=== PATIENT | male | born 1990 | race Asian ===

== ENCOUNTER 2020-04-08 15:20 | Emergency (ER) | payer OTHER ==
[2020-04-08 15:38] VITALS: BP 123/89
[2020-04-08] MEDS ORDERED: CHERRY SYRUP 10 ML UDC PO ONE (16:51)
[2020-04-08] MEDS ORDERED: DEXAMETHASONE 10 MG/ML VIAL PO STA (16:51)
--- NOTE | 2020-04-08 16:54 | ED Physician Documentation ---
PD HPI HEENT - Stated complaint Stated Complaint: FACIAL PAIN - Chief complaint Chief Complaint: General - History obtained from History obtained from: Patient - History of Present Illness Timing - onset: Yesterday Timing - duration: Days (1) Timing - details: Gradual onset, Still present Location: Left ear, Sinuses Improves: Medication Associated symptoms: Congestion, Rhinorrhea, Facial swelling, Cough. No: Fever Similar symptoms before: Diagnosis (sinusitis) Recently seen: Not recently seen - Additional information Additional information: Previously well 29-year-old male has developed nasal congestion facial pain and swelling as well as pain in his left ear. He has bit the had the pain in his left ear for about a month he developed a sinus pain and congestion yesterday and now he is blowing yellow and green phlegm from his nose. He denies any fever he does have a headache and facial pain. Review of Systems Constitutional: denies: Fever, Chills Eyes: denies: Decreased vision Ears: reports: Ear pain Nose: reports: Rhinorrhea / runny nose, Congestion, Sinus pressure / pain Throat: denies: Sore throat Cardiac: denies: Chest pain / pressure, Palpitations Respiratory: reports: Cough. denies: Dyspnea GI: denies: Vomiting PD PAST MEDICAL HISTORY - Past Medical History Past Medical History: No - Past Surgical History Past Surgical History: No - Present Medications Home Medications: Ambulatory Orders Medication Instructions Recorded Confirmed Cefdinir 300 mg PO BID #20 capsule 04/08/20 - Social History Does the pt smoke?: No Smoking Status: Never smoker PD ED PE NORMAL - Vitals Vital signs reviewed: Yes (tachy and hypertensive) - General General: Alert and oriented X 3, No acute distress, Well developed/nourished - HEENT HEENT: Atraumatic, PERRL, EOMI, Other (The left TM is inflamed with distortion of the landmarks. The right is inflamed. The pharynx is inflamed with 2+ cryptic exudative tonsils. ) - Neck Neck: Supple, no meningeal sign, No bony TTP - Cardiac Cardiac: RRR, No murmur - Respiratory Respiratory: No respiratory distress, Clear bilaterally - Abdomen Abdomen: Soft, Non tender - Back Back: No CVA TTP, No spinal TTP - Derm Derm: Normal color, Warm and dry, No rash - Extremities Extremities: No deformity, No edema - Neuro Neuro: Alert and oriented X 3, telephone collector 2-12 intact, No motor deficit, No sensory deficit, Normal speech Eye Opening: Spontaneous Motor: Obeys Commands Verbal: Oriented GCS Score: 15 - Psych Psych: Normal mood, Normal affect Results - Vitals Vitals: Vital Signs - 24 hr 04/08/20 15:36 Temperature 37.2 C Heart Rate 112 H Respiratory 18 Rate Blood Pressure 123/89 H O2 Saturation 96 Oxygen O2 Source Room air PD MEDICAL DECISION MAKING - ED course Complexity details: considered differential, d/w patient ED course: 29-year-old male with acute sinusitis and otitis is administered dexamethasone 10 mg orally and we will place him on a course of cefdinir Departure - Departure Disposition: Home, Self Care Clinical Impression: Acute sinusitis Qualifiers: Sinusitis location: maxillary Recurrence: non-recurrent Qualified Code(s): J01.00 - Acute maxillary sinusitis, unspecified Otitis media Qualifiers: Otitis media type: suppurative Chronicity: acute Laterality: bilateral Recurrence: non-recurrent Spontaneous tympanic membrane rupture: without spontaneous rupture Qualified Code(s): H66.003 - Acute suppurative otitis media without spontaneous rupture of ear drum, bilateral Condition: Stable Instructions: ED Sinusitis Abx Tx, ED Otitis Media Acute Adult Follow-Up: SUMMER MONTENEGRO MD [Primary Care Provider] - Prescriptions: Cefdinir 300 mg PO BID #20 capsule
== END 2020-04-08 17:12 | disposition home or self-care (01) ==
LOC: ED 15:20
DX: J01.00 Acute maxillary sinusitis, unspecified (principal); H66.003 Acute suppurative otitis media without spontaneous rupture of ear drum, bilateral
CPT/HCPCS: 99282; 99284; A9270

== ENCOUNTER 2022-10-31 14:42 | Outpatient (CLI) | payer OTHER ==
[2022-10-31 15:58] VITALS: BP 136/82
--- NOTE | 2022-10-31 15:58 | SLEEP CARE CONSULTATION ---
Information from patient questionnaire entered by April Johnson. I have reviewed and concur with the information entered by April Johnson. This document represents the service I personally performed and the decisions made by me, Iesha Metzger ARNP. History of Present Illness Service Date and Time: 10/31/2022 1442 Reason for Visit: New patient Chief Complaint: reports: Unrefreshed sleep, Snoring, Observed pauses in breathing, Fatigue, Frequent awakenings at night Date of Onset: 6-7YRS Usual bedtime: 9PM-10PM Time it takes to fall asleep: 20MIN-60MIN Snores at night: Yes Observed to quit breathing while asleep: Yes Sleeps alone due to snoring: No Number of times waking at night: 1-2 Reasons for waking at night: reports: Gasping for air (happened 2 times overall with a bad dream), Other (UNKNOWN). denies: Choking, Snoring Toss, Turn, or Twitch while sleeping: Yes Recalls having dreams: Yes Usually gets out of bed at: 5-6AM Feels refreshed in the morning: No Morning headache: Yes (2-3 days in a row twice a month; hx of migraines; MEDS [facility] DRINKS) Sleepy or fatigued during the day: Yes Ever fallen asleep while driving: No Takes day naps: No Dreams during day naps: Yes Prior sleep studies: No Additional HPI information: I had the pleasure of seeing BETH RODRIGUEZ today regarding the possibility of him having a sleep disorder. His current complaints are fatigue, frequent night awakenings, observed pauses in breathing, snoring and unrefreshed sleep. He states that his is telling him that she thinks he is not breathing and snoring loudly. He states it takes 20 minutes to 1 hour to fall asleep. He will take melatonin to help him fall asleep which he states helps him fall asleep quicker. If he does not take the melatonin he will not fall asleep for an hour or more. He does have brother who has a PAP machine. - Parasomnia Symptoms Ever been unable to move upon waking from sleep: Yes (rare, with a bad dream once when young; last one 4 yrs ago) Walks in sleep: No Talks in sleep: Yes Ever acted out dreams in sleep: Yes (small hand movements, typing) Ever felt weak in the knees when startled or emotional: No Bothered by creepy, crawly, restless sensations in legs: Yes (nighttime, sometimes (not every day)) Problems with memory or concentration: Yes (both) Subjective Initial [place] Sleepiness Scale score: 19 (10/31/22) Past Medical History Past Medical History: reports: Anxiety, Depression, Other (migraines) Social History 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 Patient is and lives in [place]. Have you smoked in the past 12 months: No Years of smokin Quit date: 2018 Alcohol use: No Caffeine use: Yes Caffeine amount and frequency: 1-2 CANS 4-5 DAYS A WEEK Family History Family history of sleep disordered breathing: Yes Family Hx Sleep Apnea: Sibling: Snoring, Sleep apnea - Treated Allergies and Home Medications Known drug allergies: No Drug allergies reviewed: Yes Home medication list reviewed: Yes Allergy and home medication list: Allergies No Known Drug Allergies Allergy (Verified 10/30/22 15:41) Medications: Wellbutrin Sumatriptan prn headaches Excedrin, prn Melatonin, prn sleep Review of Systems Weight gain over past 5 years: 10 Cardiovascular: denies: high blood pressure Gastrointestinal: denies: heartburn Neurological: reports: headaches Psychiatric: reports: anxiety, depression Ear/Nose/Throat: reports: wisdom teeth removed. denies: injury to nose, tonsillectomy Endocrine: reports: sluggishness Musculoskeletal: reports: neck pain, back pain Immunologic: denies: allergies to food or environment Physical Exam Vital signs obtained and entered by: APRIL Morales MA Blood Pressure: 136/82 (LEFT ARM) Cuff size: regular Heart Rate: 80 O2 Saturation: 96 Height: 5 ft 9 in Weight: 202 lb 6.4 oz Body Mass Index: 29.9 BMI Classification: Overweight Neck circumference: 16.25 Mouth and throat: narrow oropharynx Soft palate: normal Hard palate: normal Uvula: normal Uvula visualization: 100% Mallampati Class I Tongue: enlarged in size with teeth dobson on lateral edges Tonsils: 2+ Neck: normal w/o lymphadenopathy or thyromegaly Heart: regular rate and rhythm Lungs: clear bilaterally Impression and Plan 1. Suspected Obstructive Sleep Apnea-Hypopnea Syndrome, as suggested by a history of loud and irregular snoring, observed cessation of breath while asleep, morning headache, frequent awakening during the night, unrefreshed sleep, cognitive impairment, and excessive daytime sleepiness. Narrow oropharynx and obesity are common predisposing factors for obstructive sleep apnea-hypopnea syndrome. I recommend proceeding to polysomnography to confirm the diagnosis and to assess severity. If the patient has significant sleep disordered breathing, a manual CPAP titration study will also be performed to find the optimal treatment pressure. I informed the patient of what the sleep studies involve and after some discussion, obtained agreement to proceed. The pathophysiology of obs tructive sleep apnea-hypopnea syndrome was discussed with the patient and health risks of cardiovascular and cerebrovascular disease if not treated. Risks of drowsy driving discussed in detail and patient advised to avoid long distance driving and to hook puller at the first sign of drowsiness. Patient agreed to plan. * Schedule polysomnography * Avoid long distance driving or driving when feeling sleepy. * Avoid alcohol, sedative and muscle relaxant around bedtime. * Attempt to lose weight. * Review instructions provided by trained office staff on how to prepare for the sleep study. * Return for follow-up after sleep study completed. Counseling Topics: Weight loss health impact Visit Type: In Office Time Spent with Patient (minutes): 30 Provider Statement: I spent 100% of the Face to Face Visit with the patient with greater than 50% spent counseling the patient and coordination of care.
== END 2022-10-31 14:43 | disposition home or self-care (01) ==
LOC: SC 14:42
PROVIDERS: ATTEND Nurse Practitioner Family
DX: R06.83 Snoring (principal); G47.8 Other sleep disorders; R06.81 Apnea, not elsewhere classified; R51.9 Headache, unspecified; G47.10 Hypersomnia, unspecified; R53.83 Other fatigue; F32.A Depression, unspecified; Z87.891 Personal history of nicotine dependence; E66.3 Overweight; Z68.29 Body mass index [BMI] 29.0-29.9, adult
CPT/HCPCS: 99203; 99212

== ENCOUNTER 2022-11-25 20:28 | Outpatient (CLI) | payer OTHER | END 2022-11-25 20:29 | disposition home or self-care (01) | LOC: SC 20:28 | PROVIDERS: ATTEND Nurse Practitioner Family | DX: G47.33 Obstructive sleep apnea (adult) (pediatric) (principal) | CPT/HCPCS: 95810 ==

== ENCOUNTER 2022-12-24 14:47 | Outpatient (CLI) | payer OTHER ==
[2022-12-24 15:07] VITALS: BP 123/83
--- NOTE | 2022-12-24 15:07 | SLEEP CARE CONSULTATION ---
Information from patient questionnaire entered by April Johnson. I have reviewed and concur with the information entered by April Johnson. This document represents the service I personally performed and the decisions made by me, Iesha Metzger ARNP. History of Present Illness Service Date and Time: 12/24/2022 1447 Initial [place] Sleepiness Scale score: 19 (10/31/22) Current [place] Sleepiness Scale score: 16 Additional HPI information: BETH RODRIGUEZ returns for follow up and results of the recently performed polysomnography. I explained the pathophysiology behind obstructive sleep apnea. We then spent quite a bit of time discussing different treatment options. For mild obstructive sleep apnea, surgery and oral appliance are alternatives to nasal CPAP therapy but in moderate or severe cases, nasal CPAP is the most effective and reliable treatment. Because apnea is primarily in supine position, then positional management therapy could be effective. Methods discussed such as positioning with pillows, using a T-shirt with tennis balls in the back or commercial products that have a pillow format on back to prevent supine sleep. I reviewed the impact of weight changes on sleep apnea and strongly recommended losing weight. After some discussion, the patient opted to go with the nasal CPAP therapy. Nasal autoCPAP set at 4-15 cmH20 will be ordered with rationale explained. A manual titration study will be ordered if unable to find optimal pressure with office adjustments. I explained how CPAP machine works and what to expect when using the machine. Using CPAP every night in order to get used to it was emphasized. Patient advised to put CPAP mask on before getting into bed so as not to fall asleep without CPAP. To assist acclimation to CPAP use, it could also be used for a short time during day while reading or watching TV. The patient was instructed to call the CPAP supplier to discuss any mechanical problem that may occur. If the mask given is uncomfortable or is difficult to keep on through the night even with adjustment, contact the CPAP supplier as many will replace with another mask style if notified before 30 days. If snoring or perceives is not getting enough air or too much air from the machine, notify this office. Patient does not drink alcohol. Patient was cautioned about risks of drowsy driving until sleepiness symptoms resolve. Patient denies drowsy driving. Sleep Study - Results Type of Sleep Study: Polysomnography (COMPLETED 11/25/2022) Prior sleep studies: No Polysomnography/Home Sleep Study results: IMPRESSION: The quality of the study is good. The patient had normal sleep efficiency. The sleep architecture was relatively normal considering the first-night effect. Respiratory monitoring showed mild obstructive sleep apnea-hypopnea (AHI = 7.3) associated with oxyhemoglobin desaturation and mild hypoxia (nasir oxygen saturation of 81%). The respiratory events occurred almost exclusively during supine sleep (supine AHI = 10.7; non-supine = 1.62). Snore was light to moderate in intensity. There was no significant periodic leg movement of sleep. Cardiac rhythm was normal sinus rhythm without significant arrhythmia. No abnormal behavior (parasomnia) observed during the night Allergies and Home Medications Known drug allergies: No Drug allergies reviewed: Yes Home medication list reviewed: Yes (Bupropion XL 150 mg; Benazepril 10 mg) Allergy and home medication list: Allergies No Known Drug Allergies Allergy (Verified 12/23/22 08:54) Review of Systems Review of systems same as previous: No (Hypertension; possible Pre-diabetic) Physical Exam Vital signs obtained and entered by: IOANA Arriaza Blood Pressure: 123/83 (left arm) Cuff size: long Heart Rate: 97 O2 Saturation: 98 Height: 5 ft 9 in Weight: 204 lb (with boots/clothes on) Body Mass Index: 30.1 BMI Classification: Obese Impression and Plan 1. Obstructive Sleep Apnea-Hypopnea Syndrome, mild, with lowest oxygen saturation of 81%. Obviously this is the cause of the patients symptoms of unrefreshed sleep, and excessive daytime sleepiness. Positive pressure therapy could benefit anxiety, depression and migraines. As mentioned above, the patient will be started on nasal autoCPAP therapy with pressure set at 4-15 cmH2 O. A manual titration study will be completed if unable to find optimal treatment pressure with office adjustments. Compliance guidelines also reviewed. A copy of compliance guidelines will be given for reference at check out. Because the apnea is more severe supine, I instructed to avoid sleeping supine using pillow positioning until able to start CPAP use. 2. Hypoxemia, mild, with a nasir oxygen saturation of 81% and 2 minutes spent under 90%. His baseline oxygen saturation was normal with an average oxygen saturation of 94%. * Nasal auto CPAP therapy, pressure at 4-15 cm H2O. * Attempt to lose weight. * Avoid alcohol consumption near bedtime. * Avoid supine sleep until using CPAP. * The patient is again cautioned about driving until sleepiness completely resolves. * Return one month after CPAP obtained. I will assess response to therapy and compliance at that time. Counseling Topics: Weight loss health impact Visit Type: In Office Time Spent with Patient (minutes): 20 Provider Statement: I spent 100% of the Face to Face Visit with the patient with greater than 50% spent counseling the patient and coordination of care.
== END 2022-12-24 14:48 | disposition home or self-care (01) ==
LOC: SC 14:47
PROVIDERS: ATTEND Nurse Practitioner Family
DX: G47.33 Obstructive sleep apnea (adult) (pediatric) (principal); E66.9 Obesity, unspecified; Z68.30 Body mass index [BMI] 30.0-30.9, adult
CPT/HCPCS: 99212; 99213

== ENCOUNTER 2023-02-24 13:26 | Outpatient (CLI) | payer OTHER ==
--- NOTE | 2023-02-24 14:09 | SLEEP CARE CONSULTATION ---
Information from patient questionnaire entered by Dane Johnson. I have reviewed and concur with the information entered by Dane Johnson. This document represents the service I personally performed and the decisions made by me, Maryjane Castillo MD, [facility]. History of Present Illness Service Date and Time: 02/24/2023 1326 Reason for follow up: first compliance Equipment type: CPAP (RESMED) Prior sleep studies: No Type of Sleep Study: Polysomnography (COMPLETED 11/25/2022) HPI additional information: Mr. Alvarado was diagnosed to have mild obstructive sleep apnea-hypopnea syndrome and returns today for follow up of CPAP therapy. The patient purchased the device from [employer]. and was fitted with an Antelmo full face mask. He uses the device nightly and all through the night. The compliance report shows that he uses the device 30 nights out of the past 30 nights, averaging 4.9 hours a night. The > 4 hour compliance rate for the past 30 days is 77%. He complains of no particular problem with the device such as soreness on the face, dry nose, epistaxis, nasal congestion or headache. He thinks that the pressure of 4 - 15 cmH2O is occasionally too high during the night. On the CPAP therapy he notices improvement in his sleep quality, and that he wakes up feeling fresher in the morning and no longer has the morning headaches. His notices no snore at all. [place] Sleepiness Scale score is 17. The average residual AHI is 1.8; and average air leak is 1.5 L/minute. The 90th percentile pressure is 12.8 cmH2O. Sleep Study - Results Type of Sleep Study: Polysomnography (COMPLETED 11/25/2022) Prior sleep studies: No CPAP Compliance Data - Data Reviewed with Patient Average duration of nightly device use: 4HRS 48MIN Compliance rate %: 77 (-02/19/23) Current pressure setting (cmH2O): 4-15 Average residual AHI: 1.8 Subjective Initial [place] Sleepiness Scale score: 19 (10/31/22) Current [place] Sleepiness Scale score: 17 (02/24/23) Allergies and Home Medications Drug allergies reviewed: Yes Home medication list reviewed: Yes Allergy and home medication list: Allergies No Known Drug Allergies Allergy (Verified 02/21/23 10:27) Review of Systems Review of systems same as previous: Yes Physical Exam Vital signs obtained and entered by: DANE Morales MA Blood Pressure: 122/78 (LEFT ARM) Cuff size: regular Heart Rate: 78 O2 Saturation: 95 Height: 5 ft 9 in Weight: 200 lb 6.4 oz Body Mass Index: 29.5 BMI Classification: Overweight Impression and Plan IMPRESSION: 1. Obstructive Sleep Apnea-Hypopnea Syndrome, mild, with the patient doing well on nasal CPAP therapy. He has excellent compliance and significant clinical benefits. The current pressure appears effective and comfortable. Overall, he is very satisfied with the treatment and plans to continue with it long-term. Because he complains of feeling smothered when the pressure gets up to 12 cmH2O, I will cap it off at 11 cmH2O. PLAN: 1. AutoCPAP reduced to 5 - 11 cm H2O via the modem. 2. Try a nasal mask. He will return to his durable medical supplier for a mask refit. 3. Return in one year for follow up or earlier if there is any problem with the treatment. Follow up with Sleep Care in: 1 year Visit Type: In Office Time Spent with Patient (minutes): 15 Provider Statement: I spent 100% of the Face to Face Visit with the patient with greater than 50% spent counseling the patient and coordination of care.
[2023-02-24 14:11] VITALS: BP 122/78
== END 2023-02-24 13:27 | disposition home or self-care (01) ==
LOC: SC 13:26
PROVIDERS: ATTEND Internal Medicine Pulmonary Disease
DX: G47.33 Obstructive sleep apnea (adult) (pediatric) (principal); E66.3 Overweight; Z68.29 Body mass index [BMI] 29.0-29.9, adult
CPT/HCPCS: 99212

== ENCOUNTER 2023-10-12 07:49 | Emergency (ER) | payer OTHER ==
--- NOTE | 2023-10-12 07:58 | ED Physician Documentation ---
PD HPI LOWER EXT INJURY - Stated complaint Stated Complaint: LT FT PX - History obtained from History obtained from: Patient - History of Present Illness PD HPI LOW EXT INJURY LOCATION: Left, Foot Type of injury: Other (not aware of particular injury nor new/prolonged activity. Did go for short hike prior but did not feel soreness at the time.). No: Fall, Twist Timing - onset: How many days ago (2-3) Timing - duration: Days Timing - details: Gradual onset, Still present, Constant (has gotten progressively worse. painful for weight bearing on ball of foot; heel walking.) Improved by: Rest Worsened by: Moving, Palpating, Other (weight bearing.) Associated symptoms: No: Weakness, Numbness, Swelling, Discolored Similar symptoms before: Has not had sx before Review of Systems Constitutional: denies: Fever, Chills Skin: denies: Rash, Lesions, Abrasion (s), Laceration (s) Musculoskeletal: denies: Extremity swelling Neurologic: denies: Focal weakness, Numbness PD PAST MEDICAL HISTORY - Past Medical History Endocrine/Autoimmune: None Musculoskeletal: None - Past Surgical History Past Surgical History: No - Present Medications Home Medications: Ambulatory Orders Medication Instructions Recorded Confirmed Excedrin See Rx Instructions .ROUTE .COMPLEX 10/31/22 Melatonin/Pyridoxine [Melatonin 5 See Rx Instructions .ROUTE .COMPLEX 10/31/22 10/31/22 mg Tablet] SUMAtriptan [Imitrex] See Rx Instructions .ROUTE .COMPLEX 10/31/22 10/31/22 buPROPion [Wellbutrin Sr] See Rx Instructions .ROUTE .COMPLEX 10/31/22 10/31/22 HYDROcod/ACETAM 5/325 [Linden 5/325] 1 ea PO Q6H PRN #10 tablet 10/12/23 Naproxen 500 mg PO BID #20 tab 10/12/23 - Allergies Allergies/Adverse Reactions: Allergies Allergy/AdvReac Type Severity Reaction Status Date / Time No Known Drug Allergies Allergy Verified 10/12/23 08:00 - Social History Does the pt smoke?: No Smoking Status: Never smoker PD ED PE NORMAL - Vitals Vital signs reviewed: Yes - General General: Alert and oriented X 3, Well developed/nourished - Derm Derm: Normal color, Warm and dry - Extremities Extremities: No edema, No calf tenderness / cord, Other (left foot around 5th toe MTP and MT head with local tenderness. Minimal redness. Mild swelling dorsal aspect. No skin sores. ) - Neuro Neuro: Alert and oriented X 3, No motor deficit, No sensory deficit Results - Vitals Vitals: Oxygen O2 Source Room air - Rads (name of study) left foot Relevant Findings:: Prelim report reviewed (no bony lesions), EMP independent interpretation of test PD Medical Decision Making - ED course Complexity details: reviewed results (xray showed no bone lesions. ), considered differential (mild redness, very tender. No swelling. No noted injury. Consider tendonitis, as not at red/swollen as would expect from gout. Can get xray to eval for underlying bone lesion. Otherwise NSAIDs and ? crutches. ), d/w patient Departure - Departure Disposition: 01 Home, Self Care Clinical Impression: Left foot pain, Tendonitis Condition: Stable Record reviewed to determine appropriate education?: Yes Instructions: ED Sprain Foot Follow-Up: JON Weiss [Provider Group] Prescriptions: Naproxen 500 mg PO BID #20 tab HYDROcod/ACETAM 5/325 [Linden 5/325] 1 ea PO Q6H PRN #10 tablet PRN Reason: Pain Comments: Your x-ray is normal without any underlying obvious bone lesions, spurs, stress fractures etc. There is minimal redness and swelling and no skin lesions so it does not appear to be infectious like cellulitis nor arthritic inflammation such as gout. At this point I would presume a inflammation or irritation of the muscles and ligaments and tendons through the foot (sprain/tendinitis). This can come about because of mild or in apparent injury with just increased inflammation and does not have to be an abrupt notable injury per se. I would have you use the crutches for partial to no weightbearing as needed for pain. Regular anti-inflammatories over the next week or so. I prescribed naproxen 500 mg twice daily. To that add Tylenol every 4-6 hours if needed for pain or hydrocodone if needed for worse pain. I would anticipate improvement and resolution over 3 to 5 days. Follow-up with your primary care or back with us if not improved in that timeframe or sooner if worse/other symptoms develop. I sent your prescription to [facility]. I am prescribing a short course of narcotic pain medication for you. These are potentially dangerous and addictive medications that should be used carefully. These medications may constipate you. Take an [id number] stool softener such as docusate twice daily with plenty of water while taking these medications. If you go 24 hours without a bowel movement, take [id number]-[id number] MiraLAX, per package instructions. Do not drink or drive while taking these medications. If you received narcotic or sedating medications while in the emergency department do not drive for 24 hours. Store this medication in a safe, secure place and out of reach of children. It is a violation of federal law to give or sell this medication to another person or to use in a manner other than prescribed. The ED will not refill narcotic prescriptions, including prescriptions lost or stolen. You can dispose of unwanted medications at the [facility]'s office or at several pharmacies such as [facility]. The electronic transmission of the prescriptions is not working to [facility] so I printed out the prescription for you instead. Forms: Activity restrictions Discharge Date/Time: 10/12/23 09:29
[2023-10-12 08:08] VITALS: BP 137/77; O2SAT 98
[2023-10-12] MEDS: IBUPROFEN 800 MG TABLET PO STA (08:24)
[2023-10-12] MEDS: ACETAMINOPHEN 500 MG TABLET PO STA (08:24)
--- NOTE | 2023-10-12 08:59 | XRAY Report ---
PROCEDURE: Foot 3+V LT INDICATIONS: foot pain lateral/MTP area TECHNIQUE: 3 views of the foot were acquired. COMPARISON: None. FINDINGS: Bones: No fractures or dislocations. No suspicious bony lesions. Soft tissues: No suspicious soft tissue calcifications or masses. IMPRESSION: Normal foot plain films. Reviewed by: Franklin Blanco MD on 10/12/2023 7:57 AM [facility] Approved by: Franklin Blanco MD on 10/12/2023 7:57 AM [facility] Station ID: [id number]
== END 2023-10-12 09:29 | disposition home or self-care (01) ==
LOC: ED 07:49
DX: M77.9 Enthesopathy, unspecified (principal); Z79.899 Other long term (current) drug therapy
CPT/HCPCS: 73630; 99283; 99284; A9270